=== PATIENT | female | born 1970 | race Caucasian/White ===

== ENCOUNTER 2016-08-28 05:47 | Emergency (ER) | payer OTHER ==
[2016-08-28] MEDS ORDERED: KETOROLAC TROMETHAMINE 60 MG/2 ML VIAL IM ONE ×2 (06:20→06:23)
--- NOTE | 2016-08-28 06:20 | ERNOTE ---
ENT HPI Presenting Symptoms: other - sore throat Time Seen by Provider: 08/28/16 06:09 Source: patient Exam Limitations: no limitations - Immun/Allergies/Home Medications Immunizations: IMMUNIZATION HX Immunizations Up to Date Yes History of Influenza Vaccine No Hx Pneumococcal Vaccination No Allergies/Adverse Reactions: Allergies Allergy/AdvReac Type Severity Reaction Status Date / Time butorphanol tartrate AdvReac Mild N/V Verified 08/28/16 05:56 [From Stadol] codeine AdvReac Mild lethargic Verified 08/28/16 05:56 Home Medications: HOME MEDICATIONS Omeprazole [Prilosec] 20 mg PO DAILY 01/26/16 [Last Taken Unknown] Sertraline HCl [Zoloft] 200 mg PO DAILY 01/26/16 [Last Taken Unknown] Gabapentin 100 mg PO TID 08/26/16 [Last Taken Unknown] Ibuprofen [Motrin] 800 mg PO TID PRN #30 tablet 08/26/16 [Last Taken Unknown] Cefdinir 300 mg PO BID 08/28/16 [Last Taken Unknown] - History of Present Illness Narrative: Pt was diagnosed with strep throat yesterday. She has taken one dose of her antibiotics and she believes her throat is getting worse Severity: Present: severe ENT Location: Present: throat Prearrival Treatment: Present: over the counter meds, prescription meds Modifying Factors - Improves: Reports: nothing Modifying Factors - Worsens: Reports: other - eating. Review of Systems - Review of Systems Constitutional: Present: recent illness, fever, fatigue, malaise EYE: Present: no symptoms reported ENT: Present: See HPI Respiratory: Absent: shortness of breath, stridor Cardiology: Present: no symptoms reported Gastrointestinal/Abdominal: Present: no symptoms reported Genitourinary: Present: no symptoms reported Musculoskeletal: Present: no symptoms reported Skin: Absent: rash, lesions Neurological: Absent: dizziness/light-headedness Endocrine: Present: no symptoms reported Hematologic/Lymphatic: Present: swollen glands Psych: Present: no symptoms reported - Patient's Past Medical History Patient History - Medical: Anxiety, Depression, GERD Patient History - Cardiac/Respiratory: No pertinent hx Patient History - Cancer: No Hx of Cancer Patient History - Surgical Procedures: Other, Orthopedic Patient History - Other: None LMP (Calendar): 12/31/15 - Social History Living Situations: home Abuse History: No History of abuse Psych History: No pertinent hx Smoking Status: Never smoker Alcohol Use: none Drug Use: none - Immunizations Immunizations Up to Date: Yes Hx Pneumococcal Vaccination: No History of Influenza Vaccine: No Physical Exam - Physical Exam General Appearance: Present: wd/wn, alert, mild distress Ears, Nose, Throat: Present: pharyngeal erythema, tonsillar swelling - Grade III tonsils airway patient. Neck: Present: lymphadenopathy (R), lymphadenopathy (L) - moderate Respiratory: Present: no respiratory distress, normal breath sounds, lungs clear Cardiovascular/Chest: Present: regular rate, rhythm, no murmur, normal peripheral pulses Extremity Exam: Present: normal inspection, no edema Neurological Exam: Present: alert, oriented Skin Exam: Present: normal color, warm/dry ED Progress - Vital Signs Vital Signs: Vital Signs 08/28/16 05:50 Temperature 36.7 C Pulse Rate 97 Respiratory 20 Rate Blood Pressure 120/64 O2 Sat by Pulse 96 Oximetry - Progress/Reassessment Chief Complaint: Sore Throat Departure Clinical Impression: Strep pharyngitis - Departure Disposition: Home self-care Condition: Fair Instructions: Strep Throat, [id number] Additional Instructions: May use sore throat lozenges like NICE or sucrets (use maximum strength) for throat pain. You can also get liquid ibuprofen and take the equivalent 800mg 3- 4 times a day. Have the pharmacist help you with dosing. you may also take tylenol (sore throat liquid) in addition to the ibuprofen. Continue to take your antibiotic as prescribed until gone Referrals: Thelma Garcia, SENIOR BUSINESS DEVELOPMENT ANALYST [Primary Care Provider] -
[2016-08-28 07:31] VITALS: BP 119/80
== END 2016-08-28 06:45 | disposition home or self-care (01) ==
LOC: ER 05:47
DX: J02.0 Streptococcal pharyngitis (principal); F32.9 Major depressive disorder, single episode, unspecified

== ENCOUNTER 2016-12-30 06:15 | Emergency (ER) | payer OTHER ==
[2016-12-30 06:29] VITALS: BP 120/74
[2016-12-30] MEDS ORDERED: KETOROLAC TROMETHAMINE 60 MG/2 ML VIAL IM ONE ×2 (06:58→07:03)
--- NOTE | 2016-12-30 07:05 | ERNOTE ---
Lower Extremity HPI - General Lower Extremities Pain: ankle: right - pain and swelling Time Seen by Provider: 12/30/16 06:51 Source: patient Exam Limitations: no limitations - Immun/Allergies/Home Medications Immunizations: IMMUNIZATION HX Immunizations Up to Date Yes History of Influenza Vaccine No Hx Pneumococcal Vaccination No Allergies/Adverse Reactions: Allergies Allergy/AdvReac Type Severity Reaction Status Date / Time butorphanol tartrate AdvReac Mild N/V Verified 12/30/16 06:29 [From Stadol] codeine AdvReac Mild lethargic Verified 12/30/16 06:29 Home Medications: HOME MEDICATIONS Omeprazole [Prilosec] 20 mg PO DAILY 01/26/16 [Last Taken Unknown] Sertraline HCl [Zoloft] 200 mg PO DAILY 01/26/16 [Last Taken Unknown] Gabapentin 100 mg PO TID 08/26/16 [Last Taken Unknown] Cholecalciferol (Vitamin D3) [Vitamin D3] 4,000 unit PO DAILY 12/30/16 [Last Taken Unknown] Minocycline HCl 100 mg PO BID 12/30/16 [Last Taken Unknown] Nabumetone 750 mg PO BID #20 tablet 12/30/16 [Last Taken Unknown] Norethindrone AC-Eth Estradiol [Lavell] 1 each PO DAILY 12/30/16 [Last Taken Unknown] Phentermine HCl [Adipex-P] 37.5 mg PO DAILY 12/30/16 [Last Taken Unknown] - History of Present Illness Narrative: Pt stepped down a small step and twisted her right ankle yesterday. It was sore but improving yesterday and throughout the night it became more painful Occurred: yesterday Location of Incident: home Method of Injury: Reports: twisted Loss of Consciousness: Reports: no loss of consciousness Modifying Factors - (Improves): Reports: cold therapy, immobilization Modifying Factors - (Worsens): Reports: movement Associated Symptoms: Reports: none Other Injuries: Reports: none Review of Systems - Review of Systems Constitutional: Present: no symptoms reported EYE: Present: no symptoms reported ENT: Present: no symptoms reported Respiratory: Present: no symptoms reported Cardiology: Absent: claudication Gastrointestinal/Abdominal: Present: no symptoms reported Genitourinary: Present: no symptoms reported Musculoskeletal: Present: See HPI, joint pain, joint swelling Skin: Present: no symptoms reported Neurological: Absent: numbness, tingling Endocrine: Present: no symptoms reported Hematologic/Lymphatic: Present: no symptoms reported Psych: Present: no symptoms reported - Patient's Past Medical History Patient History - Medical: Anxiety, Depression, GERD Patient History - Cardiac/Respiratory: No pertinent hx Patient History - Cancer: No Hx of Cancer Patient History - Surgical Procedures: Other, Orthopedic Patient History - Other: None LMP (females 10-50): unknown - Social History Living Situations: home Abuse History: No History of abuse Psych History: Hx of Anxiety, Current tx/ever been on anti-depressants or anti- anxiety meds Smoking Status: Never smoker Alcohol Use: none Drug Use: none - Immunizations Immunizations Up to Date: Yes Hx Pneumococcal Vaccination: No History of Influenza Vaccine: No Physical Exam - Physical Exam General Appearance: Present: wd/wn, alert, no apparent distress Head Exam: Present: normal inspection, no evidence of injury Eye Exam: Normal inspection: bilateral Neck: Present: normal inspection, nontender Respiratory: Present: no respiratory distress, no accessory muscle use Peripheral Pulses: N=norm/S=strong/W=weak/B=bound/A=absent: Dorsalis-pedis (R): Normal, Dorsalis-pedis (L): Normal Extremity Exam: Present: decreased range of motion - inversion and plantarflexion of right ankle, joint swelling - right lateral ankle Neurological Exam: Present: alert, oriented, normal mood/affect, no motor/ sensory deficits Skin Exam: Present: normal color, warm/dry ED Progress - Vital Signs Vital Signs: Vital Signs 12/30/16 06:23 Temperature 36.0 C L Pulse Rate 84 Respiratory 16 Rate Blood Pressure 120/74 O2 Sat by Pulse 96 Oximetry - X-Ray X-Ray #1 X-Ray: ankle - right Interpretation: Interp. by me X-ray Comments: No fracture, STS noted laterally. - Progress/Reassessment Chief Complaint: Ankle Injury/ Pain Departure Clinical Impression: Right ankle sprain Qualifiers: Encounter type: initial encounter Involved ligament of ankle: deltoid ligament Qualified Code(s): S93.421A - Sprain of deltoid ligament of right ankle, initial encounter - Departure Disposition: Home self-care Condition: Good Instructions: Cryotherapy, [id number], Ankle Sprain, [id number] Additional Instructions: use ice up to 5-6 times a day for 10-15 min at a time. Elevate whenever possible. Follow up with your primary care provider if not improving in 5-7 days. Referrals: Thelma Garcia FNP [Primary Care Provider] - Prescriptions: Nabumetone 750 mg PO BID #20 tablet
== END 2016-12-30 07:32 | disposition home or self-care (01) ==
LOC: ER 06:15
DX: S93.421A Sprain of deltoid ligament of right ankle, initial encounter (principal); X58.XXXA Exposure to other specified factors, initial encounter; Y93.9 Activity, unspecified; Y92.008 Other place in unspecified non-institutional (private) residence as the place of occurrence of the external cause; K21.9 Gastro-esophageal reflux disease without esophagitis; F41.8 Other specified anxiety disorders